=== PATIENT | male | born 1985 | race Caucasian/White ===

== ENCOUNTER 2019-01-26 14:03 | Emergency (ER) | payer BC ==
[2019-01-26] MEDS ORDERED: Acetaminophen/HYDROcodone 325-5 MG Tab PO ONE (14:54)
[2019-01-26] MEDS ORDERED: Cyclobenzaprine 10 MG Tab PO ONE (14:55)
--- NOTE | 2019-01-26 15:24 | EDM.PDOC ---
ED HPI GENERAL MEDICAL PROBLEM - General Chief Complaint: Neck Problem Stated Complaint: LEFT SIDE PAIN Time Seen by Provider: 01/26/19 14:36 Source of Information: Reports: Patient - History of Present Illness INITIAL COMMENTS - FREE TEXT/NARRATIVE: 33 year old male with severe pain L base of neck that started about 4 days ago. Can move his head to the right but severe pain L post base of neck with motion to the left. No weakness, numbness or tingling. Pain does not radiate to either arm. No recent fall or injury. Neck Pain Score (Numeric/FACES): 7 - Related Data Allergies Allergy/AdvReac Type Severity Reaction Status Date / Time No Known Allergies Allergy Verified 01/26/19 14:27 Home Meds: Home Meds Cyclobenzaprine [Flexeril] 10 mg PO TID #14 tab 01/26/19 [Rx] Hydrocodone/Acetaminophen [[place] 10-325 Tablet] 1 each PO Q6HR PRN #10 tablet [Rx] Past Medical History Musculoskeletal History: Reports: Back Pain, Chronic Neurological History: Reports: Head Trauma, Seizure Other Neuro History: one seizure - Infectious Disease History Infectious Disease History: Reports: Chicken Pox - Past Surgical History HEENT Surgical History: Reports: Oral Surgery Social & Family History - Family History Family Medical History: Noncontributory - Tobacco Use Smoking Status *Q: Current Every Day Smoker Years of Tobacco use: 18 Packs/Tins Daily: 1 Used Tobacco, but Quit: No - Caffeine Use Caffeine Use: Reports: Coffee, Energy Drinks, Soda, Tea - Recreational Drug Use Recreational Drug Use: No ED ROS GENERAL - Review of Systems Review Of Systems: See Below Constitutional: Denies: Fever, Chills, Diaphoresis HEENT: Denies: Ear Pain, Throat Pain, Throat Swelling, Vertigo Respiratory: Denies: Shortness of Breath Cardiovascular: Denies: Chest Pain GI/Abdominal: Denies: Abdominal Pain, Nausea, Vomiting Musculoskeletal: Reports: Neck Pain. Denies: Arm Pain, Back Pain, Leg Pain Skin: Reports: No Symptoms Neurological: Denies: Numbness, Tingling, Trouble Speaking, Difficulty Walking, Weakness ED EXAM, GENERAL - Physical Exam Exam: See Below General Appearance: Alert, Moderate Distress Eye Exam: Bilateral Eye: PERRL Ears: Normal External Exam, Normal Canal, Normal TMs Nose: Normal Inspection Throat/Mouth: Normal Inspection Head: Atraumatic. No: Facial Swelling Neck: Limited Range of Motion (no trouble turning head to the right but severe pain with rotation to the left), Other (He is very tender L base of neck, no visible swelling, palpable mass or adenopathy). No: Tender Midline Respiratory/Chest: No Respiratory Distress, Lungs Clear Cardiovascular: Regular Rate, Rhythm Back Exam: Normal Inspection. No: Paraspinal Tenderness, Vertebral Tenderness Extremities: Normal Inspection, Normal Range of Motion Neurological: Alert, Oriented, No Motor/Sensory Deficits Skin Exam: Warm, Dry, Normal Color, No Rash Course - Vital Signs Last Recorded V/S: Last Vital Signs Temp 97.7 F 01/26/19 14:26 Pulse 73 01/26/19 14:26 Resp 18 01/26/19 14:26 BP 147/81 H 01/26/19 14:26 Pulse Ox 97 01/26/19 14:26 - Orders/Labs/Meds Meds: Medications Discontinued Medications Generic Name Dose Route Start Last Admin Trade Name Mirza PRN Reason Stop Dose Admin Hydrocodone Bitart/Acetaminophen 1 tab 01/26/19 14:54 01/26/19 15:07 [place] 325-5 Mg PO 01/26/19 14:55 1 tab ONETIME ONE Administration Cyclobenzaprine HCl 10 mg 01/26/19 14:55 01/26/19 15:07 Flexeril PO 01/26/19 14:56 10 mg ONETIME ONE Administration Departure - Departure Time of Disposition: 15:22 Disposition: Home, Self-Care 01 Condition: Fair Clinical Impression: Strain of neck muscle Qualifiers: Encounter type: initial encounter Qualified Code(s): S16.1XXA - Strain of muscle, fascia and tendon at neck level, initial encounter - Discharge Information Prescriptions: Hydrocodone/Acetaminophen [[place] 10-325 Tablet] 1 each PO Q6HR PRN #10 tablet PRN Reason: Pain Cyclobenzaprine [Flexeril] 10 mg PO TID #14 tab Instructions: Neck Exercises, Cervical Strain and Sprain Rehab-SportsMed Referrals: Ronda aFrias PA-C [Primary Care Provider] - Forms: ED Department Discharge Additional Instructions: aleve 2 tabs daily, alternate ice and heat as needed, flexeril 10 mg 3 times daily, tylenol 3 to 4 times daily or hydrocodone if needed for severe pain. Prescriptions have been sent electronic to [facility]. Do not take hydrocodone and tylenol at the same time, do not drive when taking the hydrocodone. Follow up clinic as planned. Consider a course of Physical Therapy if discomfort not resolving as expected.
== END 2019-01-26 15:43 | disposition home or self-care (01) ==
LOC: JD.ED 14:03
DX: S16.1XXA Strain of muscle, fascia and tendon at neck level, initial encounter (principal); F17.210 Nicotine dependence, cigarettes, uncomplicated; X58.XXXA Exposure to other specified factors, initial encounter
CPT/HCPCS: 99283; A9270

== ENCOUNTER 2020-11-14 15:51 | Emergency (ER) | payer BC, OTHER ==
[2020-11-14] MEDS ORDERED: HYDROmorphone 1 MG/ML Syringe IM ONE (16:18)
[2020-11-14] MEDS ORDERED: Ketorolac 60 MG/2 ML SDV IM ONE (16:18)
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
== END 2020-11-14 16:55 | disposition home or self-care (01) ==
LOC: JD.ED 15:51
DX: K08.89 Other specified disorders of teeth and supporting structures (principal); Z72.0 Tobacco use
CPT/HCPCS: 96372; 99282; J1170; J1885; 99283